=== PATIENT | female | born 1930 | race Caucasian/White ===

== ENCOUNTER 2017-05-18 20:30 | Inpatient (IN) | payer OTHER ==
[~2017-05-18] VITALS: Ht 157.5 cm; Wt 93.0 kg
[2017-05-18 23:30] LABS: BASOPHIL % 0.3 % (0-2); PLATELET COUNT 207 x10^3mcL (130-400)
[2017-05-18 23:31] LABS: RED CELL DISTRIBUTION WIDTH 15.6 % (11.5-14.5)
[2017-05-18 23:43] LABS: CALCIUM 8.8 mg/dL (8.5-10.1); CARBON DIOXIDE 30.4 mmol/L (21-32); CHLORIDE SERUM 105 mmol/L (98-107); CREATININE SERUM 1.8 mg/dL (0.6-1.0); GLUCOSE SERUM 105 mg/dL (74-106); POTASSIUM SERUM 3.7 mmol/L (3.5-5.1); SODIUM SERUM 143 mmol/L (136-145)
[2017-05-19] MEDS ORDERED: KLOR-CON M2020 MEQ PO (00:41)
[2017-05-19] MEDS ORDERED: HYDROCHLOROTHIA25 MG PO (00:41)
[2017-05-19] MEDS ORDERED: SIMVASTATIN20 M1 PO (00:42)
[2017-05-19] MEDS ORDERED: AMIODARONE HCL200 MG PO (00:42)
[2017-05-19] MEDS ORDERED: XARELTO10 M1 PO (00:42)
[2017-05-19] MEDS ORDERED: LASIX40 MG PO (00:42)
[2017-05-19] MEDS ORDERED: DIOVAN320 MG PO (00:42)
[2017-05-19] MEDS ORDERED: OSC PO (00:43)
[2017-05-19] MEDS ORDERED: XALATAN2.5 ML OU (00:43)
[2017-05-19 01:05] LABS: MAGNESIUM 2.2 mg/dL (1.8-2.4); PHOSPHOROUS 3.8 mg/dL (2.5-4.9)
[2017-05-19 01:09] LABS: CHOLESTEROL/HDL RATIO 3.3
[2017-05-19 01:26] VITALS: BP 153/67
[2017-05-19 06:12] LABS: PLATELET COUNT 225 x10^3mcL (130-400)
[2017-05-19 06:20] VITALS: BP 113/55
[2017-05-19 06:27] LABS: CALCIUM 8.7 mg/dL (8.5-10.1); CARBON DIOXIDE 29.7 mmol/L (21-32); CHLORIDE SERUM 105 mmol/L (98-107); CREATININE SERUM 1.8 mg/dL (0.6-1.0); GLUCOSE SERUM 125 mg/dL (74-106); POTASSIUM SERUM 3.8 mmol/L (3.5-5.1); SODIUM SERUM 143 mmol/L (136-145)
[2017-05-19 06:32] LABS: T3 TOTAL 0.55 ng/mL
[2017-05-19 06:42] LABS: FREE T4 1.5 ng/dL (0.76-1.46); FREE THYROXINE INDEX 4.5 ug/dL (1.4-4.5); T4(THYROXINE) 12.6 ug/dL (4.7-13.3)
[2017-05-19 07:01] LABS: BASOPHIL % 0 % (0-2)
[2017-05-19 09:13] VITALS: BP 103/39
[2017-05-19 14:11] VITALS: BP 128/54
[2017-05-19] MEDS ORDERED: PANTOPRAZOLE SO40 M1 PO (15:23)
[2017-05-19] MEDS ORDERED: LEVOTHYROXIN0.112 M1 PO (15:23)
[2017-05-19 16:19] LABS: microscopic required? YES; urine erythrocyte 3+ (NEGATIVE)
[2017-05-19 17:10] VITALS: BP 112/50
[2017-05-19 20:44] VITALS: BP 126/50
[2017-05-20 05:30] VITALS: BP 109/37
[2017-05-20 06:25] LABS: PLATELET COUNT 200 x10^3mcL (130-400)
[2017-05-20 06:38] LABS: BASOPHIL % 0 % (0-2); RED CELL DISTRIBUTION WIDTH 15.8 % (11.5-14.5)
[2017-05-20 06:48] LABS: CALCIUM 8.6 mg/dL (8.5-10.1); CARBON DIOXIDE 28.9 mmol/L (21-32); CHLORIDE SERUM 106 mmol/L (98-107); CREATININE SERUM 1.8 mg/dL (0.6-1.0); GLUCOSE SERUM 100 mg/dL (74-106); MAGNESIUM 2.3 mg/dL (1.8-2.4); PHOSPHOROUS 4.2 mg/dL (2.5-4.9); POTASSIUM SERUM 3.8 mmol/L (3.5-5.1); SODIUM SERUM 142 mmol/L (136-145)
[2017-05-20 09:06] VITALS: BP 111/39
[2017-05-20 14:27] VITALS: BP 110/45
[2017-05-20 17:53] VITALS: BP 113/53
[2017-05-20 20:36] VITALS: BP 95/40
[2017-05-21 05:54] VITALS: BP 145/53
[2017-05-21 06:31] LABS: BASOPHIL % 0.1 % (0-2); PLATELET COUNT 202 x10^3mcL (130-400)
[2017-05-21 06:34] LABS: RED CELL DISTRIBUTION WIDTH 16.1 % (11.5-14.5)
[2017-05-21 06:54] LABS: CALCIUM 8.5 mg/dL (8.5-10.1); CARBON DIOXIDE 28.2 mmol/L (21-32); CHLORIDE SERUM 107 mmol/L (98-107); CREATININE SERUM 1.8 mg/dL (0.6-1.0); GLUCOSE SERUM 102 mg/dL (74-106); SODIUM SERUM 141 mmol/L (136-145)
[2017-05-21 09:47] VITALS: BP 159/42
[2017-05-21 13:50] VITALS: BP 151/54
[2017-05-21 14:51] VITALS: BP 145/48
[2017-05-21 17:02] VITALS: BP 135/53
[2017-05-21 21:22] VITALS: BP 115/54
[2017-05-22 06:29] VITALS: BP 151/70
[2017-05-22 07:14] LABS: BASOPHIL % 0.4 % (0-2); PLATELET COUNT 248 x10^3mcL (130-400)
[2017-05-22 07:15] LABS: RED CELL DISTRIBUTION WIDTH 15.5 % (11.5-14.5)
[2017-05-22 07:16] LABS: CALCIUM 8.5 mg/dL (8.5-10.1); CARBON DIOXIDE 25.2 mmol/L (21-32); CHLORIDE SERUM 111 mmol/L (98-107); CREATININE SERUM 1.4 mg/dL (0.6-1.0); GLUCOSE SERUM 87 mg/dL (74-106); POTASSIUM SERUM 4.2 mmol/L (3.5-5.1); SODIUM SERUM 140 mmol/L (136-145)
[2017-05-22 09:36] VITALS: BP 162/59
[2017-05-22 11:40] VITALS: BP 147/51
[2017-05-22 11:49] VITALS: Ht 157.5 cm; Wt 93.0 kg
[2017-05-22] MEDS ORDERED: LEVAQUIN250 M1 PO (13:31)
[2017-05-22] MEDS ORDERED: LAC PO (13:32)
[2017-05-22] MEDS ORDERED: LAC30L PO (13:33)
[2017-05-22 14:09] VITALS: BP 147/51
== END 2017-05-22 16:45 | disposition home or self-care (01) | DRG 391 ==
LOC: ED 20:30 → MU 23:57 → DU 23:57 → MU 05-22 10:05
PROVIDERS: Emergency Medicine; Family Medicine; ADMIT Family Medicine
DX: K59.03 Drug induced constipation (principal); N17.0 Acute kidney failure with tubular necrosis; N39.0 Urinary tract infection, site not specified; R31.9 Hematuria, unspecified; T40.2X5A Adverse effect of other opioids, initial encounter; I10 Essential (primary) hypertension; K21.9 Gastro-esophageal reflux disease without esophagitis; D64.9 Anemia, unspecified; E78.5 Hyperlipidemia, unspecified; E03.9 Hypothyroidism, unspecified; H40.9 Unspecified glaucoma; Z95.810 Presence of automatic (implantable) cardiac defibrillator; Y92.009 Unspecified place in unspecified non-institutional (private) residence as the place of occurrence of the external cause
CPT/HCPCS: 82962; 83880; 84439; J1885; J1956; J7030; J7040; Q0092

== ENCOUNTER 2017-06-27 12:26 | Inpatient (IN) | payer OTHER ==
[~2017-06-27] VITALS: Ht 162.6 cm; Wt 94.1 kg
[~2017-06-27 12:26] MED LIST: AMIODARONE HCL200 MG PO; DIOVAN320 MG PO; HYDROCHLOROTHIA25 MG PO; KLOR-CON M2020 MEQ PO; LAC PO; LAC30L PO; LASIX40 MG PO; LEVAQUIN250 M1 PO; LEVOTHYROXIN0.112 M1 PO; OSC PO; PANTOPRAZOLE SO40 M1 PO; SIMVASTATIN20 M1 PO; XALATAN2.5 ML OU; XARELTO10 M1 PO
[2017-06-27 16:10] LABS: BASOPHIL % 0.2 % (0-2); PLATELET COUNT 198 x10^3mcL (130-400); RED CELL DISTRIBUTION WIDTH 14.5 % (11.5-14.5)
[2017-06-27 16:12] LABS: CARBON DIOXIDE 30.2 mmol/L (21-32); CHLORIDE SERUM 107 mmol/L (98-107); CREATININE SERUM 1.4 mg/dL (0.6-1.0); GLUCOSE SERUM 103 mg/dL (74-106); POTASSIUM SERUM 3.9 mmol/L (3.5-5.1); SODIUM SERUM 141 mmol/L (136-145)
[2017-06-27 16:17] LABS: ALBUMIN 3.1 g/dL (3.4-5.0); ALKALINE PHOSPHATASE 45 U/L (46-116); ALT/SGPT 15 U/L (14-59); AST/SGOT 30 U/L (15-37); BILIRUBIN TOTAL 0.47 mg/dL (0.20-1.00); TOTAL PROTEIN, SERUM 6.8 g/dL (6.4-8.2)
[2017-06-27 17:00] LABS: MAGNESIUM 2.5 mg/dL (1.8-2.4); PHOSPHOROUS 3.1 mg/dL (2.5-4.9)
[2017-06-27 19:48] VITALS: BP 157/58
[2017-06-27] MEDS ORDERED: METOPROLOL SUCC50 M2 PO (20:01)
[2017-06-27 21:32] LABS: RED BLOOD CELLS 3.71 M/mm3 (4.10-5.10)
[2017-06-27 21:38] LABS: IRON 50 ug/dL (50-170); TOTAL IRON BINDING CAPACITY 311 ug/dL (250-450)
[2017-06-27] MEDS ORDERED: PREDNISOLONE ACE5 ML OS (22:20)
[2017-06-27] MEDS ORDERED: LATANOPROST2.5 ML OP (22:26)
[2017-06-28] MEDS ORDERED: OMNIPRED10 ML OS ×2 (01:41→01:45)
[2017-06-28] MEDS ORDERED: XALATAN2.5 ML OU (02:01)
[2017-06-28 05:22] VITALS: BP 114/54
[2017-06-28 07:29] LABS: BASOPHIL % 0.3 % (0-2); PLATELET COUNT 170 x10^3mcL (130-400); RED CELL DISTRIBUTION WIDTH 14.6 % (11.5-14.5)
[2017-06-28 07:52] LABS: CALCIUM 8.5 mg/dL (8.5-10.1); CARBON DIOXIDE 29.5 mmol/L (21-32); CHLORIDE SERUM 109 mmol/L (98-107); CREATININE SERUM 1.4 mg/dL (0.6-1.0); GLUCOSE SERUM 88 mg/dL (74-106); MAGNESIUM 2.4 mg/dL (1.8-2.4); PHOSPHOROUS 3.7 mg/dL (2.5-4.9); POTASSIUM SERUM 3.9 mmol/L (3.5-5.1); SODIUM SERUM 143 mmol/L (136-145)
[2017-06-28 09:44] VITALS: BP 109/77
[2017-06-28 12:25] VITALS: BP 125/66
[2017-06-28 16:47] VITALS: BP 119/48
[2017-06-28 17:28] LABS: microscopic required? NO
[2017-06-28 17:45] LABS: urine erythrocyte NEGATIVE (NEGATIVE)
[2017-06-28 17:54] LABS: AMPHETAMINE QUAL UR NONE DETECTED (NEG <=1000)
[2017-06-28 19:57] VITALS: Ht 162.6 cm; Wt 94.1 kg
[2017-06-28 20:38] VITALS: BP 109/47
[2017-06-29 05:29] VITALS: BP 148/57
[2017-06-29 06:15] LABS: BASOPHIL % 0.4 % (0-2); PLATELET COUNT 158 x10^3mcL (130-400)
[2017-06-29 06:24] LABS: RED CELL DISTRIBUTION WIDTH 14.6 % (11.5-14.5)
[2017-06-29 06:32] LABS: CALCIUM 8.6 mg/dL (8.5-10.1); CARBON DIOXIDE 30.2 mmol/L (21-32); CHLORIDE SERUM 110 mmol/L (98-107); CREATININE SERUM 1.5 mg/dL (0.6-1.0); GLUCOSE SERUM 92 mg/dL (74-106); MAGNESIUM 2.3 mg/dL (1.8-2.4); PHOSPHOROUS 4.4 mg/dL (2.5-4.9); SODIUM SERUM 143 mmol/L (136-145)
[2017-06-29 09:18] VITALS: BP 110/42
[2017-06-29 12:32] VITALS: BP 131/75
[2017-06-29 13:24] VITALS: BP 131/75
== END 2017-06-29 16:16 | disposition home or self-care (01) | DRG 154 ==
LOC: ED 12:26 → DU 16:20
PROVIDERS: Emergency Medicine; ADMIT Family Medicine
PROC: 08QQXZZ Repair Right Lower Eyelid, External Approach (ICD-10-PCS; principal; 2017-06-27)
PROC: 08QNXZZ Repair Right Upper Eyelid, External Approach (ICD-10-PCS; 2017-06-27)
PROC: 0HQ1XZZ Repair Face Skin, External Approach (ICD-10-PCS; 2017-06-27)
DX: S02.2XXA Fracture of nasal bones, initial encounter for closed fracture (principal); N17.0 Acute kidney failure with tubular necrosis; E44.0 Moderate protein-calorie malnutrition; S01.81XA Laceration without foreign body of other part of head, initial encounter; S01.111A Laceration without foreign body of right eyelid and periocular area, initial encounter; I48.2 Chronic atrial fibrillation; I10 Essential (primary) hypertension; K21.9 Gastro-esophageal reflux disease without esophagitis; E03.9 Hypothyroidism, unspecified; E83.41 Hypermagnesemia; E78.5 Hyperlipidemia, unspecified; H40.9 Unspecified glaucoma; D63.8 Anemia in other chronic diseases classified elsewhere; Z79.01 Long term (current) use of anticoagulants; Z95.0 Presence of cardiac pacemaker; Z68.35 Body mass index [BMI] 35.0-35.9, adult; W01.198A Fall on same level from slipping, tripping and stumbling with subsequent striking against other object, initial encounter; Y92.008 Other place in unspecified non-institutional (private) residence as the place of occurrence of the external cause
CPT/HCPCS: 83880; 90714; 97110-GP; 97116-GP; 97530-GP; J2001; J3010; J7030; J8597; Q0162

== ENCOUNTER 2017-07-04 08:16 | Emergency (ER) | payer OTHER ==
[~2017-07-04 08:16] MED LIST changes: +LATANOPROST2.5 ML OP; +METOPROLOL SUCC50 M2 PO; +OMNIPRED10 ML OS; +PREDNISOLONE ACE5 ML OS
[2017-07-04 09:27] VITALS: BP 157/72
== END 2017-07-04 09:27 | disposition home or self-care (01) ==
LOC: ED 08:16
DX: S01.81XD Laceration without foreign body of other part of head, subsequent encounter (principal); S05.41XD Penetrating wound of orbit with or without foreign body, right eye, subsequent encounter; I10 Essential (primary) hypertension; E03.9 Hypothyroidism, unspecified; E78.00 Pure hypercholesterolemia, unspecified; H40.9 Unspecified glaucoma; Z95.0 Presence of cardiac pacemaker; W01.0XXD Fall on same level from slipping, tripping and stumbling without subsequent striking against object, subsequent encounter